=== PATIENT | male | born 1960 | race Caucasian/White ===

== ENCOUNTER 2023-05-02 08:28 | Day surgery (SDC) | payer OTHER ==
[2023-04-19 13:49] VITALS: BMI 29.5
[2023-05-02] MEDS ORDERED: EPINEPHrine/PF 1 MG/1 ML (1:1,000) AMPULE ONE (08:49)
[2023-05-02] MEDS ORDERED: VANCOMYCIN 1,000 MG VIAL (RESTRICTED TO ID ONLY) ONE (08:49)
[2023-05-02] MEDS ORDERED: DEXMEDETOMIDINE HCL 200 MCG/2 ML IVPB ONE (09:10)
[2023-05-02] MEDS ORDERED: MIDAZOLAM HCL 2 MG/2 ML SINGLE DOSE VIAL ONE (09:10)
[2023-05-02] MEDS ORDERED: BUPIVACAINE HCL/PF 0.5% (5 MG/ML) 30 ML VIAL IJ ONE (09:10)
[2023-05-02] MEDS ORDERED: PROPOFOL 80 ML ONE (09:46)
[2023-05-02] MEDS ORDERED: DEXAMETHASONE SOD PHOSPHATE/PF 10 MG/ML SDV ONE (10:08)
[2023-05-02] MEDS ORDERED: TRANEXAMIC ACID 1000 MG/10 ML VIAL IVPUSH ONE (10:15)
[2023-05-02] MEDS ORDERED: CEFAZOLIN 2 GM in DEXTROSE 5%-WATER - 100 ML IVPB ONE (10:15)
[2023-05-02] MEDS ORDERED: PROPOFOL 40 ML ONE ×3 (11:21→12:56)
[2023-05-02] MEDS ORDERED: PROPOFOL 20 ML ONE ×3 (11:34→13:54)
[2023-05-02] MEDS ORDERED: SUGAMMADEX SODIUM 200 MG/2 ML VIAL ONE (13:16)
[2023-05-02] MEDS ORDERED: MAG HYDROX/AL HYDROX/SIMETH 30 ML UNIT-DOSE CUP PO PRN (14:16)
[2023-05-02] MEDS ORDERED: ONDANSETRON 4 MG/2 ML VIAL IVPUSH PRN (14:16)
[2023-05-02] MEDS ORDERED: MAGNESIUM HYDROX 2400MG/30ML ORAL SUSPENSION 30 ML CUP PO PRN (14:16)
[2023-05-02] MEDS ORDERED: oxyCODONE HCL 5 MG TABLET PO PRN ×2 (14:28)
[2023-05-02] MEDS ORDERED: LACTATED RINGERS SOLUTION 1,000 ML IV SCH (14:30)
[2023-05-02] MEDS: ACETAMINOPHEN 500 MG TABLET (FP) PO SCH ×3 (15:00→21:18)
[2023-05-02] MEDS ORDERED: ACETAMINOPHEN 500 MG TABLET (FP) ONE (15:01)
[2023-05-02] MEDS ORDERED: ROCURONIUM BROMIDE 50 MG/5 ML SYRINGE ONE (16:13)
[2023-05-02] MEDS ORDERED: ACETAMINOPHEN 500 MG TABLET (FP) PO SCH (18:00)
[2023-05-02] MEDS: CEFAZOLIN SODIUM 2 GM in DEXTROSE 5%-WATER 100 ML IVPB SCH (18:13)
[2023-05-02] MEDS: SENNOSIDES/DOCUSATE COMBO (SENNA PLUS) TABLET (UD) PO SCH (21:18)
[2023-05-02 22:17] VITALS: RESP 16
[2023-05-02] MEDS ORDERED: VANCOMYCIN 1 GM/200 ML PREMIX BAG (RESTRICTED TO ID ONLY) IVPB ONE (23:00)
[2023-05-03] MEDS: CEFAZOLIN SODIUM 2 GM in DEXTROSE 5%-WATER 100 ML IVPB SCH ×2 (02:00→09:10)
[2023-05-03] MEDS: ACETAMINOPHEN 500 MG TABLET (FP) PO SCH ×2 (06:22→09:36)
[2023-05-03 07:21] VITALS: BP 115/77; PULSE 65; TEMP 97.7
[2023-05-03] MEDS ORDERED: ASPIRIN 325 MG TABLET PO SCH (08:00)
[2023-05-03 08:46] LABS: HEMATOCRIT 38.2 % (35.4-49); MCH 30.5 pg (25.7-33.7); MCHC 34.1 g/dl (32.0-35.9); MEAN CELL VOLUME 89.4 fl (80-96); MEAN PLT VOLUME 7.5 fl (7.5-11.1); PLATELET COUNT 186.2 10^3/uL (134-434); RBC 4.27 10^6/uL (4.00-5.60); RDW 14.6 % (11.9-15.9); WHITE BLOOD COUNT 17.1 10^3/uL (4.0-10.8)
[2023-05-03] MEDS: SENNOSIDES/DOCUSATE COMBO (SENNA PLUS) TABLET (UD) PO SCH (09:36)
[2023-05-03] MEDS ORDERED: PANTOPRAZOLE 40 MG TABLET PO SCH (10:00)
[2023-05-03] MEDS ORDERED: MULTIVITAMINS (DAILY MVI) TABLET (FP) PO SCH (10:00)
[2023-05-03 10:11] LABS: BLOOD UREA NITROGEN 11.3 mg/dl (7-18); CALCIUM 8.5 mg/dl (8.5-10.1); CREATININE 0.8 mg/dl (0.6-1.3); POTASSIUM 4.1 mmol/L (3.5-5.1)
== END 2023-05-03 11:59 | disposition home or self-care (01) ==
LOC: FASU 08:28 → FASUSAT 08:28 → FM/S 15:27 → FASUSAT 05-03 11:59
PROC: 0LS40ZZ Reposition Left Upper Arm Tendon, Open Approach (ICD-10-PCS; 2023-05-02)
PROC: 0RHK04Z Insertion of Internal Fixation Device into Left Shoulder Joint, Open Approach (ICD-10-PCS; 2023-05-02)
PROC: 0LS40ZZ Reposition Left Upper Arm Tendon, Open Approach (ICD-10-PCS; 2023-05-02)
PROC: 0LS40ZZ Reposition Left Upper Arm Tendon, Open Approach (ICD-10-PCS; 2023-05-02)
PROC: 0RRK0JZ Replacement of Left Shoulder Joint with Synthetic Substitute, Open Approach (ICD-10-PCS; principal; 2023-05-02 11:18)
DX: M19.012 Primary osteoarthritis, left shoulder (principal); M75.122 Complete rotator cuff tear or rupture of left shoulder, not specified as traumatic; M75.22 Bicipital tendinitis, left shoulder
CPT/HCPCS: 23410; 23430; 23472; C1776; 36415; 73030-TC-LT-FY; 80048; 85027; 88304-TC; 88305-TC; 88311-TC; 94760; C1713; C1763

== ENCOUNTER 2023-09-05 06:02 | Day surgery (SDC) | payer OTHER ==
[2023-09-01 13:39] VITALS: BMI 29.5
[2023-09-05] MEDS ORDERED: DEXAMETHASONE SOD PHOSPHATE 4 MG/1 ML VIAL ONE (07:03)
[2023-09-05] MEDS ORDERED: ONDANSETRON 4 MG/2 ML VIAL ONE (07:03)
[2023-09-05] MEDS ORDERED: LIDOCAINE HCL/PF 2% SDV 5ML VIAL ONE (07:03)
[2023-09-05] MEDS ORDERED: ceFAZolin SODIUM 1 GM VIAL ONE (07:03)
[2023-09-05] MEDS ORDERED: VANCOMYCIN 1,000 MG VIAL (RESTRICTED TO ID ONLY) ONE ×2 (07:04→07:21)
[2023-09-05] MEDS ORDERED: TRANEXAMIC ACID 1000 MG/10 ML VIAL ONE ×2 (07:04→07:21)
[2023-09-05] MEDS ORDERED: PROPOFOL 20 ML ONE ×2 (07:06→08:29)
[2023-09-05] MEDS ORDERED: MIDAZOLAM HCL 2 MG/2 ML SINGLE DOSE VIAL ONE ×2 (07:08→07:31)
[2023-09-05] MEDS ORDERED: BUPIVACAINE LIPOSOME/PF (EXPAREL) 266 MG/20 ML VIAL ONE (07:10)
[2023-09-05] MEDS ORDERED: BUPIVACAINE HCL/PF 0.5% (5MG/ML) 10 ML VIAL ONE (07:10)
[2023-09-05] MEDS ORDERED: ACETAMINOPHEN INJECTION 100 ML IVPB ONE (07:11)
[2023-09-05] MEDS ORDERED: EPINEPHrine 1:1,000 1,000 MCG/ML ML ONE (07:21)
[2023-09-05] MEDS ORDERED: TRANEXAMIC ACID 1000 MG/10 ML VIAL IVPUSH ONE (07:30)
[2023-09-05] MEDS ORDERED: CEFAZOLIN 2 GM in DEXTROSE 5%-WATER - 100 ML IVPB ONE (07:30)
[2023-09-05] MEDS ORDERED: ROCURONIUM BROMIDE 50 MG/5 ML SYRINGE ONE (08:28)
[2023-09-05] MEDS ORDERED: SUGAMMADEX SODIUM 200 MG/2 ML VIAL ONE (09:32)
[2023-09-05] MEDS ORDERED: MAG HYDROX/AL HYDROX/SIMETH 30 ML UNIT-DOSE CUP PO PRN (10:50)
[2023-09-05] MEDS ORDERED: ONDANSETRON 4 MG/2 ML VIAL IVPUSH PRN ×2 (10:50→11:41)
[2023-09-05] MEDS ORDERED: MAGNESIUM HYDROX 2400MG/30ML ORAL SUSPENSION 30 ML CUP PO PRN (10:50)
[2023-09-05] MEDS ORDERED: LACTATED RINGERS SOLUTION 1,000 ML IV SCH (11:00)
[2023-09-05] MEDS ORDERED: FENTANYL CITRATE/PF 50 MCG/ML VIAL ONE ×2 (11:36→11:59)
[2023-09-05] MEDS ORDERED: oxyCODONE HCL 5 MG TABLET PO PRN ×2 (11:41)
[2023-09-05] MEDS ORDERED: KETOROLAC TROMETHAMINE 30 MG/1 ML VIAL IVPUSH PRN (11:45)
[2023-09-05] MEDS: KETOROLAC TROMETHAMINE 30 MG/1 ML VIAL IVPUSH SCH ×2 (11:47→17:01)
[2023-09-05] MEDS ORDERED: SEVOFLURANE 250 ML BTL ONE (11:50)
[2023-09-05] MEDS: CEFAZOLIN SODIUM 2 GM in DEXTROSE 5%-WATER 100 ML IVPB SCH (16:59)
[2023-09-05] MEDS: ACETAMINOPHEN 500 MG TABLET (FP) PO SCH ×2 (17:00→22:36)
[2023-09-05] MEDS ORDERED: VANCOMYCIN/WATER FOR INJ (PEG) 1,000 MG/200 ML BAG IVPB ONE (20:00)
[2023-09-05 20:54] VITALS: RESP 16
[2023-09-05] MEDS: LACTATED RINGERS SOLUTION 1,000 ML IV SCH (22:32)
[2023-09-05] MEDS: SENNOSIDES/DOCUSATE COMBO (SENNA PLUS) TABLET (UD) PO SCH (22:36)
[2023-09-05] MEDS: oxyCODONE HCL 10 MG SUSTAINED ACTING TABLET PO SCH (22:36)
[2023-09-06] MEDS: CEFAZOLIN SODIUM 2 GM in DEXTROSE 5%-WATER 100 ML IVPB SCH ×2 (01:09→09:21)
[2023-09-06] MEDS: ACETAMINOPHEN 500 MG TABLET (FP) PO SCH ×2 (06:22→09:22)
[2023-09-06] MEDS ORDERED: ASPIRIN 325 MG TABLET PO SCH (08:00)
[2023-09-06 08:03] LABS: HEMATOCRIT 36.6 % (35.4-49); HEMOGLOBIN 12.1 G/dL (11.7-16.9); MCH 28.9 pg (25.7-33.7); MEAN CELL VOLUME 87.8 fl (80-96); RBC 4.17 10^6/uL (4.00-5.60); RDW 14.8 % (11.9-15.9); WHITE BLOOD COUNT 12.1 10^3/uL (4.0-10.8)
[2023-09-06 08:17] LABS: CALCIUM 8.3 mg/dl (8.5-10.1); CREATININE 0.9 mg/dl (0.6-1.3)
[2023-09-06] MEDS: SENNOSIDES/DOCUSATE COMBO (SENNA PLUS) TABLET (UD) PO SCH (09:21)
[2023-09-06] MEDS: KETOROLAC TROMETHAMINE 30 MG/1 ML VIAL IVPUSH SCH (09:25)
[2023-09-06] MEDS: oxyCODONE HCL 10 MG SUSTAINED ACTING TABLET PO SCH (09:26)
[2023-09-06] MEDS ORDERED: MULTIVITAMINS (DAILY MVI) TABLET (FP) PO SCH (10:00)
[2023-09-06] MEDS ORDERED: PANTOPRAZOLE 40 MG TABLET PO SCH (10:00)
[2023-09-06 10:08] VITALS: BP 129/66; PULSE 81; TEMP 98.2
[2023-09-06] MEDS ORDERED: DOCUSATE SODIUM 100 MG CAPSULE (FP) PO ONE (11:12)
[2023-09-06] MEDS ORDERED: POLYETHYLENE GLYCOL (HEALTHYLAX) 3350 17 GM PACKET PO SCH (11:15)
[2023-09-06] MEDS: LACTATED RINGERS SOLUTION 1,000 ML IV SCH (11:56)
== END 2023-09-06 12:55 | disposition home or self-care (01) ==
LOC: FASU 06:02 → FM/S 13:19 → FASU 09-06 12:55
PROVIDERS: ATTEND Family Medicine
PROC: 0LS30ZZ Reposition Right Upper Arm Tendon, Open Approach (ICD-10-PCS; 2023-09-05)
PROC: 0RRJ00Z Replacement of Right Shoulder Joint with Reverse Ball and Socket Synthetic Substitute, Open Approach (ICD-10-PCS; principal; 2023-09-05 07:30)
DX: M19.011 Primary osteoarthritis, right shoulder (principal); M75.101 Unspecified rotator cuff tear or rupture of right shoulder, not specified as traumatic; M75.21 Bicipital tendinitis, right shoulder
CPT/HCPCS: 23430; 23472; C1776; 36415; 73030-TC-RT-FY; 80048; 85027; 88304-TC; 88305-TC; 88311-TC; 94760; 97116-GP; 97162-GP; C1713; C1889